=== PATIENT | male | born 1960 | race Caucasian/White ===

== ENCOUNTER → 2021-03-21 12:48 | Outpatient (CLI) | payer BC, SELFPAY ==
--- NOTE | ~2021-03-21 | US_ITS ---
EXAMINATION: US soft tissue head and neck EXAM DATE: 03/21/2021 13:17 INDICATION: Localized enlarged lymph nodes. TECHNIQUE: Multiple grayscale and Doppler images of the submandibular region and left internal jugula r chain were obtained (by a technologist who performed the scan) and subsequently reviewed. There is no prior study for comparison. FINDINGS: Symmetric, unremarkable submandibular glands bilaterally. Multiple small lymph nodes identified which have expected fatty hortensia. No pathologically enlarged or morphologically abnormal lymph nodes identif ied. IMPRESSION: 1. Unremarkable ultrasound exam. Reviewed, dictated and finalized at location B.
== END ==
PROVIDERS: PCP Student in an Organized Health Care Education/Training Program; Visit Provider Student in an Organized Health Care Education/Training Program
DX: R59.0 Localized enlarged lymph nodes (principal)
CPT/HCPCS: 76536

== ENCOUNTER → 2021-06-11 11:30 | Outpatient (CLI) | payer BC, SELFPAY ==
--- NOTE | ~2021-06-11 | XR_ITS ---
XR shoulder RT min 2V DATE: 06/11/2021 11:54 INDICATION: Right shoulder pain TECHNIQUE: 4 views COMPARISON: None FINDINGS: There is diffuse osteopenia. No fracture or dislocation, periosteal reaction or bone destruction or significant abnormal calcifica tion is noted at the right shoulder. There is degenerative spurring of the thoracic spine. IMPRESSION: Diffuse osteopenia Reviewed, dictated and finalized at location B. IMPRESSION: Diffuse osteopenia
--- NOTE | ~2021-06-11 | XR_ITS ---
XR shoulder LT min 2V DATE: 06/11/2021 11:55 INDICATION: Left shoulder pain TECHNIQUE: 4 views COMPARISON: None FINDINGS: There is diffuse osteopenia. No fracture or dislocation, periosteal reaction or bone destruction or abnormal right shoulder soft t issue calcification. Degenerative spurring of the thoracic spine. IMPRESSION: Diffuse osteopenia. Reviewed, dictated and finalized at location B. IMPRESSION: Diffuse osteopenia.
== END ==
PROVIDERS: PCP Student in an Organized Health Care Education/Training Program; Visit Provider Nurse Practitioner Family
DX: M85.812 Other specified disorders of bone density and structure, left shoulder (principal); M85.811 Other specified disorders of bone density and structure, right shoulder
CPT/HCPCS: 73030

== ENCOUNTER → 2021-09-03 11:15 | Outpatient (CLI) | payer BC, SELFPAY ==
--- NOTE | ~2021-09-03 | MR_ITS ---
EXAMINATION: MR shoulder LT wo con DATE: 09/03/2021 12:00 INDICATION: Left shoulder pain TECHNIQUE: Magnetic resonance imaging (MRI) of the left shoulder was performed without intravenous co ntrast. Sequences included axial PD-weighted FS FSE, coronal oblique PD-weighted FS FSE, coronal obli que T2-weighted FS FSE, sagittal PD-weighted FS FSE, and sagittal T1-weighted SE. COMPARISON: Left shoulder radiographs dated 06/11/2021 FINDINGS: Coracoacromial arch: The acromion undersurface is curved in morphology (type II). There is mild thickening of the coracoac romial ligament at its acromial insertion where there also tiny subacromial spurs. Mild acromioclavic ular osteoarthritis. Rotator cuff: Moderate supraspinatus and mild infraspinatus tendinopathy. There is a full-thickness tear extending approximately 6 mm AP and cross the critical zone of the anterior supraspinatus tendon position appro ximately 1.2 cm proximal to the superior facet footplate. There is no separation of the tear margins. Mild subscapularis tendinopathy without discrete tear. At the rotator cuff interval there is thicken ing of the structures of the biceps chantal sling with partial replacement of the normal fat signal wi th differential including either partial tear and scarring of the biceps chantal sling or adhesive cap sulitis. Normal rotator cuff muscle bulk and signal. Biceps tendon, glenoid labrum and glenohumeral cartilage: Moderate tendinopathy without tear at the junction of the intra-articular and extra articular portion of the long head biceps tendon. Irregular degenerative tearing at the 1-2:00 position of the anteros uperior glenoid labrum. Remainder of the glenoid labrum appears normal. Glenohumeral cartilage is nor mal. Fluid: Fluid in the long head biceps tendon sheath disproportionate to the physiologic amount of fluid in th e glenoid humeral joint space consistent with bicipital tenosynovitis. No loose osteochondral bodies. Small amount of fluid in the subacromial/subdeltoid bursa consistent with mild bursitis. Bones: No fracture or pathologic marrow replacing process. Mild cystic change along the superior facet of th e greater tuberosity. IMPRESSION: 1. Moderate supraspinatus tendinopathy with small full-thickness tear along the critical zone of the anterior supraspinatus tendon. 2. Degenerative tearing at the anterosuperior glenoid labrum. 3. Thickening of the biceps chantal sling at the rotator cuff interval suggesting partial tear and sca rring. Differential includes adhesive capsulitis which is a clinical diagnosis. 4. Bicipital tenosynovitis with moderate tendinopathy at the junction of the intra-articular and extr a articular portions of the tendon. 5. Mild acromioclavicular osteoarthritis with mild underlying subacromial/subdeltoid bursitis. Reviewed, dictated and finalized at location H. [facility]PER IMPRESSION: 1. Moderate supraspinatus tendinopathy with small full-thickness tear along the critical zone of the anterior supraspinatus tendon. 2. Degenerative tearing at the anterosuperior glenoid labrum. 3. Thickening of the biceps chantal sling at the rotator cuff interval suggestin g partial tear and scarring. Differential includes adhesive capsulitis which is a clinical diagnosis. 4. Bicipital tenosynovitis with moderate tendinopathy at the junction of the in tra-articular and extra articular portions of the tendon. 5. Mild acromioclavicular osteoarthritis with mild underlying subacromial/subde ltoid bursitis.
== END ==
PROVIDERS: PCP Student in an Organized Health Care Education/Training Program; Visit Provider Student in an Organized Health Care Education/Training Program
DX: M75.102 Unspecified rotator cuff tear or rupture of left shoulder, not specified as traumatic (principal); S43.432A Superior glenoid labrum lesion of left shoulder, initial encounter; M65.812 Other synovitis and tenosynovitis, left shoulder; M19.012 Primary osteoarthritis, left shoulder; M75.52 Bursitis of left shoulder
CPT/HCPCS: 73221